=== PATIENT | male | born 1990 | race Caucasian/White ===

== ENCOUNTER 2017-05-09 19:35 | Emergency (ER) | payer OTHER ==
--- NOTE | 2017-05-09 21:54 | UC ---
Lower Extremity/Ankle HPI - HPI Summary HPI Summary: This is an otherwise healthy 26 yo male who presented with R foot pain. It started spontaneously ~1week ago. Yesterday, while he was walking around at work he felt his 1st toe "pop" and he has had increased pain since that time. Most of the pain is on the dorsum of the foot and worse with toe flexion with weight on the foot. He runs frequently. No associated swelling or ecchymosis. No h/o similar symptoms. No other joint involvement - History of Current Complaint Chief Complaint: UCLowerExtremity Stated Complaint: RIGHT FOOT INJURY - Allergies/Home Medications Allergies/Adverse Reactions: Allergies Allergy/AdvReac Type Severity Reaction Status Date / Time Shellfish Allergy Allergy Airway Verified 05/09/17 20:27 Obstruction Home Medications: Home Medications NK [No Home Medications Reported] 05/09/17 [History Confirmed 05/09/17] PMH/Surg Hx/FS Hx/Imm Hx Previously Healthy: Yes - Surgical History Surgical History: Yes Surgery Procedure, Year, and Place: right knee and left ankle surgery - Family History Known Family History: Positive: None - Social History Alcohol Use: Occasionally Substance Use Type: None Smoking Status (MU): Never Smoked Tobacco - Immunization History Most Recent Influenza Vaccination: none Review of Systems Constitutional: Negative Skin: Negative Eyes: Negative ENT: Negative Respiratory: Negative Cardiovascular: Negative Gastrointestinal: Negative Genitourinary: Negative Motor: Negative Neurovascular: Negative Musculoskeletal: Arthralgia Neurological: Negative Psychological: Negative All Other Systems Reviewed And Are Negative: Yes Physical Exam Triage Information Reviewed: Yes Appearance: Well-Appearing Vital Signs: Initial Vital Signs Temp 98.5 F 05/09/17 20:24 Pulse 49 05/09/17 20:24 Resp 18 05/09/17 20:24 BP 110/75 05/09/17 20:24 Pulse Ox 100 05/09/17 20:24 Vital Signs Reviewed: Yes Neck: Positive: Supple, Nontender Respiratory: Positive: Chest non-tender, Normal breath sounds. Negative: Crackles, Rhonchi, Stridor, Wheezing Cardiovascular: Positive: RRR, No Murmur Musculoskeletal: Positive: Other: - Mild TTP over the 1st metatarsal head. No edema or ecchymosis, no pain with flexion. Diagnostics - Laboratory Diagnostic Studies Completed/Ordered: XR foot - NAD Lower Extremity Course/Dx - Course Course Of Treatment: This is an otherwise healthy 26 yo male who presented with R foot pain. No focal exam findings. XR negative. May represent a foot sprain from running. Recommend taking a couple days from running, using ibuprofen for pain relief with frequent icing. - Differential Dx/Diagnosis Differential Diagnosis/HQI/PQRI: Fracture (Closed), Tendonitis Provider Diagnoses: 1. R foot sprain Discharge - Discharge Plan Condition: Stable Disposition: HOME Patient Education Materials: Foot Sprain (ED) Referrals: No Primary Care Phys,NOPCP [Primary Care Provider] - Additional Instructions: Activity: As tolerated Instructions: 1. Take a couple days off from running 2. Ice the area frequently 3. Use 600-800 mg of ibuprofen three times daily for pain and inflammation relief
[2017-05-09 22:29] VITALS: BP 127/73
--- NOTE | 2017-05-10 07:26 | RAD ---
INDICATION: Right foot pain. TECHNIQUE: 3 views of the right foot were obtained. FINDINGS: The bones are in normal alignment. No fracture is seen. Joint spaces appear maintained. IMPRESSION: NO EVIDENCE FOR FRACTURE.
== END 2017-05-09 22:34 | disposition home or self-care (01) ==
LOC: UCEAST 19:35
DX: S93.601A Unspecified sprain of right foot, initial encounter (principal); X50.3XXA Overexertion from repetitive movements, initial encounter; Y93.01 Activity, walking, marching and hiking; Y92.9 Unspecified place or not applicable; Y99.9 Unspecified external cause status
CPT/HCPCS: 99211; G0463